=== PATIENT | male | born 1990 | race Caucasian/White ===

== ENCOUNTER 2018-07-30 16:46 | Inpatient (IN) ==
--- NOTE | 2018-07-30 17:23 | ERNOTE ---
<Fatou Lea - Last Filed: 07/30/18 19:48> Medical Problem HPI - General Chief Complaint: Nausea/Vomiting Time Seen by Provider: 07/30/18 17:14 Source: patient Exam Limitations: no limitations - Immun/Allergies/Home Medications Immunizations: IMMUNIZATION HX Immunizations Up to Date Yes History of Influenza Vaccine Yes Hx Pneumococcal Vaccination No Allergies/Adverse Reactions: Allergies Sulfa (Sulfonamide Antibiotics) Allergy (Verified 07/30/18 17:05) Home Medications: HOME MEDICATIONS Ibuprofen [Ibu] 600 mg PO TID #30 tab 02/25/18 [Last Taken Unknown] insulin aspart U- 100 100 unit/mL subcutaneous solution 10 unit SUBCUT TIDWM #10 ml 06/02/18 [Last Taken Unknown] insulin detemir (U- 100) 100 unit/mL subcutaneous solution 17 unit SUBCUT HS #20 ml 06/03/18 [Last Taken Unknown] - History of Present History Narrative: Patient has been a type 1 diabetic since age 5. Two days ago he started to have a fever up to 101 and also started to vomit. A coworker came down with similar symptoms a couple of days ago and he returned from [place] by plane five days ago. He states that he has been compliant with his medication. His glucose was r unning high this afternoon even though he has not been able to keep anything down in 18 hours, took 10 extra units of insulin, glucose still running high in triage. He denies any other medical problem, no drug use Review of Systems - Review of Systems Constitutional: Present: fever, malaise ENT: Absent: nose congestion, nasal drainage, sore throat Respiratory: Absent: shortness of breath, cough Cardiology: Absent: chest pain Gastrointestinal/Abdominal: Present: nausea, vomiting, abdominal pain. Absent: diarrhea Genitourinary: Present: frequency. Absent: dysuria Musculoskeletal: Absent: back pain Neurological: Absent: headache Endocrine: Present: increased thirst, increased urine Medical History (Last Reviewed 07/30/18 @ 17:28 by Fatou Lea MD) Diabetes type I (Chronic) Onset Date: Unknown Depression (Chronic) Onset Date: Unknown Anger (Chronic) Onset Date: Unknown Anxiety (Chronic) Onset Date: Unknown Influenza vaccine refused Does not want to receive. 03/28/18 Hypothyroidism Onset Date: 11/29/16 Appendicitis Onset Date: Unknown Back spasm Onset Date: 01/18/14 Drug abuse Onset Date: ~11/2016 Cocaine & THC - hospitalized in 2006 Numbness and tingling in right hand Onset Date: 01/18/14 Surgical History: Surgical History (Last Reviewed 07/30/18 @ 17:06 by Kady Mei RN) History of appendectomy Onset Date: Unknown Family History: Family History (Last Reviewed 07/30/18 @ 17:06 by Kady Mei RN) Mother No pertinent family history Father No pertinent family history Social History: Preferred Language Bangladeshi Do you have any scientologist or No cultural preference? Smoking Status Current every day smoker Psych History No pertinent hx Alcohol Use none Drug Use none (Last Updated 04/02/18 @ 12:57 by Amarilys Mukherjee DPM) No Social History Section defined Physical Exam - Physical Exam General Appearance: Present: wd/wn, alert, no apparent distress Head Exam: Present: normal inspection Eye Exam: Normal inspection: bilateral Ears, Nose, Throat: Present: normal pharynx, dry mucous membranes Respiratory: Present: no respiratory distress, normal breath sounds, no accessory muscle use, chest nontender, lungs clear Cardiovascular/Chest: Present: no murmur, tachycardia Gastrointestinal/Abdominal: Present: normal bowel sounds, nondistended, soft, tenderness - diffuse, max periumbilical Extremity Exam: Present: no edema Neurological Exam: Present: alert, oriented, normal mood/affect, no motor/sensory deficits Skin Exam: Present: normal color, warm/dry Progress - Results and Orders Patient's Lab Results:: I have reviewed the patient's lab results. - Vital Signs Patient's Vital Signs:: I have reviewed the patient's vital signs. Vital Signs: Vital Signs 07/30/18 17:01 Temperature 36.1 C Pulse Rate 123 H Respiratory Rate 16 Blood Pressure 148/93 H O2 Sat by Pulse Oximetry 100 - X-Ray X-Ray #1 X-Ray: abdomen - no acute changes Interpretation: Interp. by me - Progress/Reassessment Chief Complaint: Nausea/Vomiting Progress Note-Subjective: 07/30/18 18:32 discussed labs results and diagnosis of DKA, pain better after first 500ml IV fluids, patient vomited again 07/30/18 19:17 feeling much better after fluids, tolerated ice chips discussed lab test, as elevated AP and GGT will get ultrasound to rule out obstruction - Transfer of Care Physician Sign Out: Fatou Lea Receiving Physician: jT Garcia Pending Results: X-ray results Expected Disposition: Admit Departure Clinical Impression: Elevated liver enzymes Type I diabetes mellitus, uncontrolled Qualifiers: Glycemic state: with hyperglycemia Qualified Code(s): E10.65 - Type 1 diabetes mellitus with hyperglycemia DKA (diabetic ketoacidoses) Qualifiers: Diabetes mellitus type: type 1 Diabetes mellitus complication detail: without coma Qualified Code(s): E10.10 - Type 1 diabetes mellitus with ketoacidosis without coma - Departure Disposition: Still a patient Condition: Stable <Tj Garcia - Last Filed: 07/30/18 23:39> Medical Problem HPI - Immun/Allergies/Home Medications Immunizations: IMMUNIZATION HX Immunizations Up to Date Yes History of Influenza Vaccine Yes Hx Pneumococcal Vaccination No Medical History (Last Reviewed 07/30/18 @ 17:28 by Fatou Lea MD) Diabetes type I (Chronic) Onset Date: Unknown Depression (Chronic) Onset Date: Unknown Anger (Chronic) Onset Date: Unknown Anxiety (Chronic) Onset Date: Unknown Influenza vaccine refused Does not want to receive. 03/28/18 Hypothyroidism Onset Date: 11/29/16 Appendicitis Onset Date: Unknown Back spasm Onset Date: 01/18/14 Drug abuse Onset Date: ~11/2016 Cocaine & THC - hospitalized in 2006 Numbness and tingling in right hand Onset Date: 01/18/14 Surgical History: Surgical History (Last Reviewed 07/30/18 @ 17:06 by Kady Mei RN) History of appendectomy Onset Date: Unknown Family History: Family History (Last Reviewed 07/30/18 @ 17:06 by Kady Mei RN) Mother No pertinent family history Father No pertinent family history Social History: Preferred Language Bangladeshi Do you have any scientologist or No cultural preference? Smoking Status Current every day smoker Psych History No pertinent hx Alcohol Use none Drug Use none (Last Updated 04/02/18 @ 12:57 by Amarilys Mukherjee DPM) No Social History Section defined Progress - Vital Signs Vital Signs: Vital Signs 07/30/18 17:01 07/30/18 17:20 07/30/18 17:35 Temperature 36.1 C 37.3 C Pulse Rate 123 H 85 88 Respiratory Rate 16 18 Blood Pressure 148/93 H 90/50 115/73 O2 Sat by Pulse Oximetry 100 91 L 91 L 07/30/18 18:48 07/30/18 19:25 07/30/18 19:42 Temperature Pulse Rate 122 H 119 H 114 H Respiratory Rate 18 16 20 Blood Pressure 131/81 131/82 131/82 O2 Sat by Pulse Oximetry 99 98 98 07/30/18 19:58 07/30/18 20:47 Temperature 38.2 C H Pulse Rate 117 H 108 H Respiratory Rate 20 24 H Blood Pressure 127/71 136/91 H O2 Sat by Pulse Oximetry 98 99 - CT/Ultrasound CT/Ultrasound Narrative: Liver U/S: IMPRESSION: Hepatomegaly with diffuse hepatic steatosis. No focal lesions. Normal caliber bile ducts. Electronically signed by Molly Seay D.O. - Progress/Reassessment Progress Note-Subjective: 07/30/18 22:[address] Brantlye and he agrees with admission to the [facility]
[2018-07-30 17:28] LABS: Hematocrit 46.8 % (42.0-52.0); Hemoglobin 15.3 gm/dL (13.5-18.0); Mean Cell Volume 97.1 fl (78-100); Mean Corpuscular Hemoglobin 31.7 pg (27-31); Mean Corpuscular Hgb Conc 32.7 g/dl (32-36); Mean Platelet Volume 9.9 fl (8-11.3); Neutrophil # 5.9 K/mm3 (1.3-6.0); Neutrophil % 68.3 % (42-75.0); Platelet Count 339 K/mm3 (150-450); Red Blood Count 4.82 M/mm3 (4.7-6.0); Red Cell Distribution Width 12.5 % (11.5-14.0); White Blood Count 8.6 K/mm3 (4.0-10.5)
[2018-07-30] MEDS: NORMAL SALINE 1,000 ML IV ONE ×2 (17:32→18:45)
[2018-07-30] MEDS ORDERED: ONDANSETRON HCL/PF 2 MG/ML VIAL IV ONE (17:37)
[2018-07-30 17:42] LABS: Urine Bilirubin Negative (NEGATIVE); Urine Blood Negative /ul (NEGATIVE); Urine Ketone Large mg/dL (NEGATIVE); Urine Nitrite Negative (NEGATIVE); Urine Protein Negative (NEGATIVE); Urine Specific Gravity 1.015 SP.GR. (1.005-1.030); Urine Urobilinogen Normal (NORMAL)
[2018-07-30 17:47] LABS: ALT 229 U/L (19-67); AST 194 U/L (0-48); Albumin * 4.2 gm/dl (3.4-5.0); Alkaline Phosphatase * 248 U/L (50-170); Anion Gap 39.1 mmol/L (6.8-13.8); BUN/Creatinine Ratio 10.3 (9.0-21.6); Bilirubin, Total 1.1 mg/dL (0.0-1.1); Blood Urea Nitrogen 21 mg/dL (6-23); Ca. Corrected For Albumin 10.1 mg/dL (8.4-10.2); Calcium * 10.6 mg/dL (7.9-10.9); Chloride 85 mmol/L (97-106); Potassium 5.1 mmol/L (3.4-4.6); Sodium 131 mmol/L (132-142); Total Protein 8.1 gm/dL (6.2-8.2)
[2018-07-30 17:51] LABS: Urine Appearance Clear (CLEAR); Urine Bacteria TRACE; Urine Color Pale Yellow; Urine RBC None Seen /hpf (0-5); Urine WBC None Seen /hpf (0-5)
[2018-07-30 18:01] LABS: Cocaine Ur Negative (NEGATIVE); Urine Barbiturate Negative (NEGATIVE); Urine Benzodiazepines Negative (NEGATIVE); Urine Opiates Negative (NEGATIVE); Urine PCP Negative (NEGATIVE); Urine THC Negative (NEGATIVE)
[2018-07-30 18:08] LABS: Glucose * 757 mg/dL (70-110)
[2018-07-30] MEDS ORDERED: INSULIN REGULAR, HUMAN 100 UNITS in NORMAL SALINE 100 ML IV PRN ×2 (18:25)
[2018-07-30] MEDS ORDERED: INSULIN REGULAR, HUMAN 100 UNITS/ML VIAL IV ONE (18:25)
[2018-07-30 18:39] LABS: Amylase * 17 U/L (25-115); Lipase 43 U/L (73-393)
[2018-07-30] MEDS ORDERED: NORMAL SALINE 1,000 ML IV ONE (18:43)
[2018-07-30] MEDS ORDERED: NALBUPHINE HCL 20 MG/ML AMPUL IV ONE (20:41)
[2018-07-31] MEDS ORDERED: DEXTROSE 5%-0.5 NORMAL SALINE 1,000 ML IV PRN (00:11)
[2018-07-31] MEDS ORDERED: INSULIN REGULAR, HUMAN 100 UNITS in NORMAL SALINE 100 ML IV PRN ×2 (00:19)
[2018-07-31 00:22] LABS: BUN/Creatinine Ratio 9.3 (9.0-21.6); Estimated Creat Clear 52.8; Potassium 3.8 mmol/L (3.4-4.6)
[2018-07-31 00:23] LABS: Anion Gap 19.1 mmol/L (6.8-13.8); Calcium * 9.1 mg/dL (7.9-10.9); Carbon Dioxide 23.7 mmol/L (24-32.6)
--- NOTE | 2018-07-31 00:58 | HP ---
Chief Complaint - Chief Complaint Date of Service: 07/31/18 Time of Service: 00:50 Chief Complaint: N/V, abdominal pain History of Present Illness: 27-year-old male with history of type 1 diabetes presented to the ER today with 2 days of nausea vomiting, abdominal pain, increased thirst/increased urination. Patient states he has had DKA before and so it felt like. Patient states his been taking his insulin and not eating much so he is unsure as to why when the DKA. He denies recent illnesses. His glucoses roughly 800 upon admission, he had a pH of 7.24, he had a gap of 39. Corrected sodium was 141. Potassium was 5.1. Patient was placed under observation and transferred to the unit for DKA protocol. Patient states that he is feeling better since being given insulin in the ER. His only concern is that he is thirsty. Note there was some abnormal liver values on CMP. Ultrasound obtained showing hepatomegaly and some steatosis but otherwise fairly unremarkable. Medical History (Last Reviewed 07/30/18 @ 17:28 by Fatou Lea MD) Diabetes type I (Chronic) Onset Date: Unknown Depression (Chronic) Onset Date: Unknown Anger (Chronic) Onset Date: Unknown Anxiety (Chronic) Onset Date: Unknown Influenza vaccine refused Does not want to receive. 03/28/18 Hypothyroidism Onset Date: 11/29/16 Appendicitis Onset Date: Unknown Back spasm Onset Date: 01/18/14 Drug abuse Onset Date: ~11/2016 Cocaine & THC - hospitalized in 2006 Numbness and tingling in right hand Onset Date: 01/18/14 Surgical History: Surgical History (Last Reviewed 07/30/18 @ 17:06 by Kady Mei RN) History of appendectomy Onset Date: Unknown Family History: Family History (Last Reviewed 07/30/18 @ 17:06 by Kady Mei RN) Mother No pertinent family history Father No pertinent family history Social History: Patient Lives/Resources Home Utilized Preferred Language Irish Do you have any jainism or No cultural preference? Smoking Status Current every day smoker Have you smoked in the past 12 Yes months Psych History No pertinent hx Alcohol Use none Drug Use none (Last Updated 04/02/18 @ 12:57 by Amarilys Mukherjee DPM) No Social History Section defined Review Of Systems (GEN) - Review of Systems Generalized/Overall Review: Present: Weakness. Absent: Chills, Fever EENTM: Present: No Symptoms Reported Respiratory: Present: Other - Increased respiration rate. Absent: Cough, Shortness of Breath Cardiac: Present: No Symptoms Reported Abdominal: Present: Nausea, Vomiting Genitourinary: Present: No Symptoms Reported Musculoskeletal: Present: No Symptoms Reported Neurological: Present: No Symptoms Reported Skin: Present: Dryness Immunizations: IMMUNIZATION HX Immunizations Up to Date Yes History of Influenza Vaccine Yes Hx Pneumococcal Vaccination No Allergies/Adverse Reactions: Allergies Allergy/AdvReac Type Severity Reaction Status Date / Time Sulfa (Sulfonamide Allergy Verified 07/30/18 17:05 Antibiotics) Home Medications: HOME MEDICATIONS Ibuprofen [Ibu] 600 mg PO TID #30 tab 02/25/18 [Last Taken Unknown] insulin aspart U- 100 100 unit/mL subcutaneous solution 10 unit SUBCUT TIDWM #10 ml 06/02/18 [Last Taken Unknown] insulin detemir (U- 100) 100 unit/mL subcutaneous solution 17 unit SUBCUT HS #20 ml 06/03/18 [Last Taken Unknown] Exam - Exam Vital Signs: Vital Signs - Last Taken Temp 37.2 C 07/30/18 23:15 Pulse 99 07/30/18 23:30 Resp 19 07/30/18 23:30 BP 118/66 07/30/18 23:30 Pulse Ox 95 07/30/18 23:30 Constitutional: Present: Alert, Oriented x3, Young Eye Exam: bilateral eye: normal inspection, EOMI Neck: Present: non-tender, supple Back Exam: Present: normal inspection, no CVA tenderness Respiratory: Present: chest non-tender, lungs clear, other. Absent: respiratory distress Cardiovascular/Chest: Present: normal peripheral pulses, no murmur, tachycardia Abdomen: Present: Normal bowel sounds, tender - Diffuse tenderness, mild /Rectal: Present: Exam deferred Skin Exam: Present: warm/dry, diaphoresis Appearance: Present: appropriate appearance, appropriate insight Eye contact: Present: cooperative, good eye contact Thoughts: Present: normal thought pattern, normal mood /affect Diagnostic Studies: Abnormal Lab Results 07/30/18 07/30/18 07/30/18 Range/Units 17:26 17:26 17:26 MCH 31.7 H (27-31) pg Immature Gran % (Auto) 0.70 H (0.001-0.429) % Immature Gran # (Auto) 0.06 H (0.000-0.0310) K/mm3 VBG pH 7.240 L (7.32-7.43) Sodium 131 L (132-142) mmol/L Plasma Sodium (130-142) mmol/L Potassium 5.1 H D (3.4-4.6) mmol/L Chloride 85 L (97-106) mmol/L Carbon Dioxide 12.0 L (24-32.6) mmol/L Anion Gap 39.1 H (6.8-13.8) mmol/L Creatinine 2.04 H D (0.4-1.4) mg/dL Est GFR (Non-Af Amer) 41 L D (60-130) mL/min Random Glucose 757 H* (70-110) mg/dL GGT (4-104) U/L AST 194 H (0-48) U/L ALT 229 H (19-67) U/L Alkaline Phosphatase 248 H (50-170) U/L Amylase (25-115) U/L Lipase (73-393) U/L Urine Glucose (UA) (NEGATIVE) mg/dL Serum Ketones Positive - 40mg/dl H (NEGATIVE) 07/30/18 07/30/18 07/30/18 Range/Units 17:26 17:37 23:53 MCH (27-31) pg Immature Gran % (Auto) (0.001-0.429) % Immature Gran # (Auto) (0.000-0.0310) K/mm3 VBG pH (7.32-7.43) Sodium (132-142) mmol/L Plasma Sodium 143 H (130-142) mmol/L Potassium (3.4-4.6) mmol/L Chloride (97-106) mmol/L Carbon Dioxide 23.7 L (24-32.6) mmol/L Anion Gap 19.1 H (6.8-13.8) mmol/L Creatinine 1.93 H (0.4-1.4) mg/dL Est GFR (Non-Af Amer) 44 L (60-130) mL/min Random Glucose 168 H D (70-110) mg/dL GGT 998 H (4-104) U/L AST (0-48) U/L ALT (19-67) U/L Alkaline Phosphatase (50-170) U/L Amylase 17 L (25-115) U/L Lipase 43 L (73-393) U/L Urine Glucose (UA) >=1000 H (NEGATIVE) mg/dL Serum Ketones (NEGATIVE) Laboratory Results WBC 8.6 K/mm3 (4.0-10.5) 07/30/18 17: RBC 4.82 M/mm3 (4.7-6.0) 07/30/18 17:26 Hgb 15.3 gm/dL (13.5-18.0) 07/30/18 17: Hct 46.8 % (42.0-52.0) 07/30/18 17: MCV 97.1 fl (78-100) 07/30/18 17: MCH 31.7 pg (27-31) H 07/30/18 17: MCHC 32.7 g/dl (32-36) 07/30/18 17: RDW 12.5 % (11.5-14.0) 07/30/18 17: Plt Count 339 K/mm3 (150-450) 07/30/18 17: MPV 9.9 fl (8-11.3) 07/30/18 17: Immature Gran % (Auto) 0.70 % (0.001-0.429) H 07/30/18 17: Immature Gran # (Auto) 0.06 K/mm3 (0.000-0.0310) H 07/30/18 17:26 Neutrophils % 68.3 % (42-75.0) 07/30/18 17: Lymphocytes % 21.6 % (20-51) 07/30/18 17: Monocytes % 8.1 % (0.0-9) 07/30/18 17: Eosinophils % 0.5 % (0.0-3.0) 07/30/18 17: Basophils % 0.8 % (0.0-1.0) 07/30/18: Nucleated RBC % 0.0 k/mm3 (0-1) 07/30/18 17: Neutrophils # 5.9 K/mm3 (1.3-6.0) 07/30/18 17: Lymphocytes # 1.87 k/mm3 (1.5-3.5) 07/30/18 17:26 Monocytes # 0.7 k/mm3 (0.0-1.0) 07/30/18 17:26 Eosinophils # 0.0 k/mm3 (0.0-0.7) 07/30/18 17:26 Absolute Basophils 0.1 k/mm3 (0.0-0.1) 07/30/18 17:26 VBG pH 7.240 (7.32-7.43) L 07/30/18 17:26 Sodium 142 mmol/L (132-142) 07/30/18 23:53 Plasma Sodium 143 mmol/L (130-142) H 07/30/18 23:53 Potassium 3.8 mmol/L (3.4-4.6) D 07/30/18 23:53 Chloride 103 mmol/L (97-106) 07/30/18 23:53 Carbon Dioxide 23.7 mmol/L (24-32.6) L 07/30/18 23:53 Anion Gap 19.1 mmol/L (6.8-13.8) H 07/30/18 23:53 BUN 18 mg/dL (6-23) 07/30/18 23:53 Creatinine 1.93 mg/dL (0.4-1.4) H 07/30/18 23:53 Est GFR (Non-Af Amer) 44 mL/min (60-130) L 07/30/18 23:53 BUN/Creatinine Ratio 9.3 (9.0-21.6) 07/30/18 23:53 Random Glucose 168 mg/dL (70-110) H D 07/30/18 23:53 Calcium 9.1 mg/dL (7.9-10.9) 07/30/18 23:53 Calcium Adj for Albumin 10.1 mg/dL (8.4-10.2) 07/30/18 17:26 Total Bilirubin 1.1 mg/dL (0.0-1.1) 07/30/18 17:26 GGT 998 U/L (4-104) H 07/30/18 17:26 AST 194 U/L (0-48) H 07/30/18 17:26 ALT 229 U/L (19-67) H 07/30/18 17:26 Alkaline Phosphatase 248 U/L (50-170) H 07/30/18 17:26 Total Protein 8.1 gm/dL (6.2-8.2) 07/30/18 17:26 Albumin 4.2 gm/dl (3.4-5.0) 07/30/18 17:26 Amylase 17 U/L (25-115) L 07/30/18 17: Lipase 43 U/L (73-393) L 07/30/18 17:26 Urine Color Pale yellow 07/30/18 17:37 Urine Appearance Clear (CLEAR) 07/30/18 17:37 Urine pH 5.0 pH (5.0-7.0) 07/30/18 17:37 Ur Specific [place] 1.015 SP.GR. (1.005-1.030) 07/30/18 17:37 Urine Protein Negative mg/dL (NEGATIVE) 07/30/18 17:37 Urine Glucose (UA) >=1000 mg/dL (NEGATIVE) H 07/30/18 17:37 Urine Ketones Large mg/dL (NEGATIVE) 07/30/18 17:37 Urine Blood Negative /ul (NEGATIVE) 07/30/18 17:37 Urine Nitrate Negative (NEGATIVE) 07/30/18 17:37 Urine Bilirubin Negative mg/dl (NEGATIVE) 07/30/18 17:37 Urine Urobilinogen Normal EU/dl (NORMAL) 07/30/18 17:37 Ur Leukocyte Esterase Negative /ul (NEGATIVE) 07/30/18 17:37 Urine RBC None seen /hpf (0-5) 07/30/18 17:37 Urine WBC None seen /hpf (0-5) 07/30/18 17:37 Ur Epithelial Cells None seen /hpf (0-5) 07/30/18 17:37 Urine Bacteria Trace (NONE) 07/30/18 17:37 Urine Culture Comments No culture indicated 07/30/18 17:37 Urine Opiates Screen Negative (NEGATIVE) 07/30/18 17:37 Barbiturate Screen Negative (NEGATIVE) 07/30/18 17:37 Ur Phencyclidine Scrn Negative (NEGATIVE) 07/30/18 17:37 Urine Amphetamine Negative (NEGATIVE) 07/30/18 17:37 U Benzodiazepines Scrn Negative (NEGATIVE) 07/30/18 17:37 Urine Cocaine Screen Negative (NEGATIVE) 07/30/18 17:37 Urine Marijuana (THC) Negative (NEGATIVE) 07/30/18 17:37 Serum Ketones Positive - 40mg/dl (NEGATIVE) H 07/30/18 17:26 Monoscreen Negative (NEGATIVE) 07/30/18 17:26 Influenza Type A Ag Negative (NEGATIVE) 07/30/18 17:21 Influenza Type B Ag Negative (NEGATIVE) 07/30/18 17:21 Group A Strep Rapid Negative (NEGATIVE) 07/30/18 17:25 Assessment/Plan - Narrative Narrative: Algorithm for DKA written out and given to the nurse. When patient got to the floor his glucose had been dropped down to 185 and patient was on insulin. His gap had not been checked and so unsure as to where he stood. Stopped the insulin for the time being, started the patient on D5 half-normal rate of 250. Will restart insulin roughly 30 minutes after starting him on D5 half-normal. Patient to be on D5 half-normal saline with insulin running at roughly 2.5 units/h while his sugars under 250. If his sugar climbs above 250 then he will go up to 5 units an hour with the D5 half normal saline ran at the same rate. Potassium to be monitored, BMP to be checked every 2 hours. If potassium drops down to 44.2, we will add potassium chloride 20 mEq to the liter of D5 half- normal saline. If the potassium climbs above 4.5 we will stop the D5 half- normal saline with potassium and resume D5 half-normal saline without potassium. Will monitor ABGs every 2 hours until his gas returns to normal then we will stop checking this. We will continue this insulin and fluid resuscitation until her gap is closed. Patient to be made n.p.o. aside from ice chips until this takes place. Nurse will call with any questions or concerns regarding this process. She will notify me of any critical values. - Assessment/Plan (1) DKA (diabetic ketoacidoses) Problem: Acute Qualifiers: Diabetes mellitus type: type 1 Diabetes mellitus complication detail: without coma Qualified Code(s): E10.10 - Type 1 diabetes mellitus with ketoacidosis without coma (2) Diabetes type I Problem: Chronic Qualifiers: Diabetes mellitus complication status: without complication Qualified Code(s): E10.9 - Type 1 diabetes mellitus without complications (3) Elevated liver enzymes Problem: Acute
[2018-07-31] MEDS ORDERED: POTASSIUM CHLORIDE 20 MEQ in DEXTROSE 5%-0.5 NORMAL SALINE 1,000 ML IV PRN ×2 (01:11→01:37)
[2018-07-31] MEDS: POTASSIUM CHLORIDE 20 MEQ in DEXTROSE 5%-0.5 NORMAL SALINE 1,000 ML IV SCH ×2 (01:48→05:43)
[2018-07-31 02:14] LABS: Anion Gap 20.1 mmol/L (6.8-13.8); BUN/Creatinine Ratio 10.3 (9.0-21.6); Calcium * 8.9 mg/dL (7.9-10.9); Carbon Dioxide 21.7 mmol/L (24-32.6); Estimated Creat Clear 58.6; Potassium 3.8 mmol/L (3.4-4.6)
[2018-07-31 04:22] LABS: Anion Gap 15.6 mmol/L (6.8-13.8); BUN/Creatinine Ratio 9.1 (9.0-21.6); Calcium * 8.9 mg/dL (7.9-10.9); Carbon Dioxide 25.2 mmol/L (24-32.6); Estimated Creat Clear 54.8; Potassium 3.8 mmol/L (3.4-4.6)
[2018-07-31 07:12] LABS: Anion Gap 12.6 mmol/L (6.8-13.8); BUN/Creatinine Ratio 8.9 (9.0-21.6); Carbon Dioxide 28.2 mmol/L (24-32.6); Estimated Creat Clear 60.7; Potassium 3.8 mmol/L (3.4-4.6)
[2018-07-31] MEDS ORDERED: NORMAL SALINE 1,000 ML IV PRN (08:38)
[2018-07-31] MEDS: INSULIN DETEMIR 100 UNITS/ML VIAL SC SCH ×2 (09:07→09:14)
[2018-07-31] MEDS: INSULIN ASPART 100 UNITS/ML VIAL SC SCH ×2 (09:08→13:53)
[2018-07-31] MEDS ORDERED: ONDANSETRON HCL/PF 2 MG/ML VIAL IV PRN ×2 (09:30→16:00)
[2018-07-31 12:24] LABS: Albumin * 3.2 gm/dl (3.4-5.0); Anion Gap 12.5 mmol/L (6.8-13.8); Bilirubin, Total 0.3 mg/dL (0.0-1.1); Ca. Corrected For Albumin 9.3 mg/dL (8.4-10.2); Carbon Dioxide 28.2 mmol/L (24-32.6); Potassium 3.7 mmol/L (3.4-4.6); Total Protein 6.5 gm/dL (6.2-8.2)
[2018-07-31] MEDS: NORMAL SALINE 1,000 ML IV PRN ×2 (16:31→23:51)
[2018-07-31] MEDS ORDERED: INSULIN ASPART 100 UNITS/ML VIAL SC SCH (17:00)
[2018-07-31] MEDS ORDERED: KETOROLAC TROMETHAMINE 30 MG/ML VIAL IV ONE (19:30)
[2018-08-01 05:35] LABS: Hematocrit 41.3 % (42.0-52.0); Hemoglobin 13.2 gm/dL (13.5-18.0); Mean Cell Volume 99.5 fl (78-100); Mean Corpuscular Hemoglobin 31.8 pg (27-31); Mean Platelet Volume 9.7 fl (8-11.3); Neutrophil # 3.4 K/mm3 (1.3-6.0); Neutrophil % 54.2 % (42-75.0); Platelet Count 212 K/mm3 (150-450); Red Blood Count 4.15 M/mm3 (4.7-6.0); Red Cell Distribution Width 12.9 % (11.5-14.0); White Blood Count 6.4 K/mm3 (4.0-10.5)
[2018-08-01 06:00] LABS: Albumin * 2.5 gm/dl (3.4-5.0); Anion Gap 14.7 mmol/L (6.8-13.8); BUN/Creatinine Ratio 10.2 (9.0-21.6); Bilirubin, Total 0.2 mg/dL (0.0-1.1); Calcium * 8.1 mg/dL (7.9-10.9); Carbon Dioxide 21.7 mmol/L (24-32.6); Potassium 4.4 mmol/L (3.4-4.6); Total Protein 5.5 gm/dL (6.2-8.2)
[2018-08-01] MEDS: NORMAL SALINE 1,000 ML IV PRN (06:36)
[2018-08-01] MEDS: INSULIN ASPART 100 UNITS/ML VIAL SC SCH ×2 (08:21→11:28)
[2018-08-01] MEDS ORDERED: INSULIN DETEMIR 100 UNITS/ML VIAL SC SCH (09:00)
--- NOTE | 2018-08-01 11:25 | DS ---
(1) DKA (diabetic ketoacidoses) Problem: Acute Qualifiers: Diabetes mellitus type: type 1 Diabetes mellitus complication detail: without coma Qualified Code(s): E10.10 - Type 1 diabetes mellitus with ketoacidosis without coma (2) Elevated liver enzymes Problem: Acute (3) Type I diabetes mellitus, uncontrolled Problem: Acute Qualifiers: Glycemic state: with hyperglycemia Qualified Code(s): E10.65 - Type 1 diabetes mellitus with hyperglycemia Description of Stay: Ian was admitted with DKA secondary to his chronic Type I DM exacerbated by gastrointestinal virus with nausea and vomiting cause dehydration. He was admitted to the SCU and placed on fluids and Insulin drip. His high anion metabolic acidosis was corrected and he was restarted on home insulin. He also had acute renal failure and elevated liver enzymes likely from dehydration and stress. With fluids the creatinine improved and was 1.4 on discharge. Liver enzymes are stable but still elevated at this time. He will follow up with me next week and we will recheck renal and liver function. He will continue on his usual insulin. He feels great, no longer has nausea or vomiting. His appetite has improved and he is eating and drinking normal. He feels ready for home discharge. Procedures Performed: none Results and Findings: Lab Pending Results 07/30/18 17:21: Influenza Type A Ag Negative, Influenza Type B Ag Negative 07/30/18 17:25: Group A Strep Rapid Negative 07/30/18 17:26: WBC 8.6, RBC 4.82, Hgb 15.3, Hct 46.8, MCV 97.1, MCH 31.7 H, MCHC 32.7, RDW 12.5, Plt Count 339, MPV 9.9, Immature Gran % (Auto) 0.70 H, Immature Gran # (Auto) 0.06 H, Neutrophils % 68.3, Lymphocytes % 21.6, Monocytes % 8.1, Eosinophils % 0.5, Basophils % 0.8, Nucleated RBC % 0.0, Neutrophils # 5.9, Lymphocytes # 1.87, Monocytes # 0.7, Eosinophils # 0.0, Absolute Basophils 0.1 07/30/18 17:26: VBG pH 7.240 L 07/30/18 17:26: Sodium 131 L, Plasma Sodium 142, Potassium 5.1 H D, Chloride 85 L, Carbon Dioxide 12.0 L, Anion Gap 39.1 H, BUN 21, Creatinine 2.04 H D, Est GFR (Non-Af Amer) 41 L D, BUN/Creatinine Ratio 10.3, Random Glucose 757 H*, Calcium 10.6, Calcium Adj for Albumin 10.1, Total Bilirubin 1.1, AST 194 H, ALT 229 H, Alkaline Phosphatase 248 H, Total Protein 8.1, Albumin 4.2, Serum Ketones Positive - 40mg/dl H 07/30/18 17:26: GGT 998 H, Amylase 17 L, Lipase 43 L 07/30/18 17:26: Monoscreen Negative 07/30/18 17:37: Urine Color Pale yellow, Urine Appearance Clear, Urine pH 5.0, Ur Specific [place] 1.015, Urine Protein Negative, Urine Glucose (UA) >=1000 H, Urine Ketones Large, Urine Blood Negative, Urine Nitrate Negative, Urine Bilirubin Negative, Urine Urobilinogen Normal, Ur Leukocyte Esterase Negative, Urine RBC None seen, Urine WBC None seen, Ur Epithelial Cells None seen, Urine Bacteria Trace, Urine Culture Comments No culture indicated 07/30/18 17:37: Urine Opiates Screen Negative, Barbiturate Screen Negative, Ur Phencyclidine Scrn Negative, Urine Amphetamine Negative, U Benzodiazepines Scrn Negative, Urine Cocaine Screen Negative, Urine Marijuana (THC) Negative 07/30/18 23:53: Sodium 142, Plasma Sodium 143 H, Potassium 3.8 D, Chloride 103, Carbon Dioxide 23.7 L, Anion Gap 19.1 H, BUN 18, Creatinine 1.93 H, Est GFR (Non-Af Amer) 44 L, BUN/Creatinine Ratio 9.3, Random Glucose 168 H D, Calcium 9.1 07/31/18 02:00: VBG pH 7.361 07/31/18 02:00: Sodium 140, Plasma Sodium 142, Potassium 3.8, Chloride 102, Carbon Dioxide 21.7 L, Anion Gap 20.1 H, BUN 18, Creatinine 1.74 H, Est GFR (Non-Af Amer) 50 L, BUN/Creatinine Ratio 10.3, Random Glucose 240 H D, Calcium 8.9 07/31/18 04:05: Sodium 141, Plasma Sodium 143 H, Potassium 3.8, Chloride 104, Carbon Dioxide 25.2, Anion Gap 15.6 H, BUN 17, Creatinine 1.86 H, Est GFR (Non-A f Amer) 46 L, BUN/Creatinine Ratio 9.1, Random Glucose 202 H, Calcium 8.9 07/31/18 06:20: Sodium 142, Plasma Sodium 143 H, Potassium 3.8, Chloride 105, Carbon Dioxide 28.2, Anion Gap 12.6, BUN 15, Creatinine 1.68 H, Est GFR (Non-Af Amer) 52 L, BUN/Creatinine Ratio 8.9 L, Random Glucose 154 H, Calcium 9.0 07/31/18 12:00: Sodium 142, Plasma Sodium 141, Potassium 3.7, Chloride 105, Carbon Dioxide 28.2, Anion Gap 12.5, BUN 12, Creatinine 1.50 H, Est GFR (Non-Af Amer) 59 L, BUN/Creatinine Ratio 8.0 L, Random Glucose 56 L D, Calcium 9.0, Calcium Adj for Albumin 9.3, Total Bilirubin 0.3, AST 123 H, ALT 170 H, Alkaline Phosphatase 194 H, Total Protein 6.5, Albumin 3.2 L 08/01/18 05:30: WBC 6.4 D, RBC 4.15 L, Hgb 13.2 L, Hct 41.3 L, MCV 99.5, MCH 31.8 H, MCHC 32.0, RDW 12.9, Plt Count 212, MPV 9.7, Immature Gran % (Auto) 0.30, Immature Gran # (Auto) 0.02, Neutrophils % 54.2, Lymphocytes % 36.7, Monocytes % 6.3, Eosinophils % 1.9, Basophils % 0.6, Nucleated RBC % 0.0, Neutrophils # 3.4, Lymphocytes # 2.33, Monocytes # 0.4, Eosinophils # 0.1, Absolute Basophils 0.0 08/01/18 05:30: Sodium 137, Plasma Sodium 140, Potassium 4.4, Chloride 105, Carbon Dioxide 21.7 L, Anion Gap 14.7 H, BUN 15, Creatinine 1.47 H, Est GFR (Non-Af Amer) 60, BUN/Creatinine Ratio 10.2, Random Glucose 292 H D, Calcium 8.1, Calcium Adj for Albumin 9.0, Total Bilirubin 0.2, AST 173 H, ALT 150 H, Alkaline Phosphatase 169, Total Protein 5.5 L, Albumin 2.5 L Discharge Location: Home Disposition: Home self-care Condition: Good Discharge Activity: Activity as tolerated Discharge Diet: Consistent carbs Referrals: Gil Bonds DO [Primary Care Provider] - (Keep already scheduled appointment on 08/05/18.) Problem Oriented Discharge Instructions to Patient/Family: Diabetic Ketoacidosis Complete Home Medications List: Complete Home Medication List: Ibuprofen [Ibu] 600 mg PO TID #30 tab 02/25/18 insulin aspart U- 100 100 unit/mL subcutaneous solution 10 unit SUBCUT TIDWM #10 ml 06/02/18 insulin detemir (U- 100) 100 unit/mL subcutaneous solution 17 unit SUBCUT HS #20 ml 06/03/18
[2018-08-01] MEDS ORDERED: INSULIN ASPART 100 UNITS/ML VIAL SC SCH (12:00)
[2018-08-01 15:15] VITALS: BP 135/89
== END 2018-08-01 14:50 | disposition home or self-care (01) | DRG 638 ==
LOC: ER 16:46 → SCU 16:46 → MS 07-31 16:03
PROVIDERS: ADMIT Family Medicine; ATTEND Family Medicine
CPT/HCPCS: 36415; 74019; 74020; 76705; 80048; 80053; 80307; 81001; 82009; 82150; 82800; 82977; 83690; 85025; 86308; 87081; 87400; 87430; 87449; 96361; 96365; 96366; 96375; 99285; J2405